=== PATIENT | male | born 1970 | race Caucasian/White ===

== ENCOUNTER 2017-01-02 22:52 | Emergency (ER) | payer BC ==
[2017-01-02] MEDS ORDERED: Diphtheria,Pertussis(Acell),Tetanus Vaccine 0.5 ML SDV IM ONE (23:28)
[2017-01-02] MEDS ORDERED: Bacitracin Oint 1 GM U/D Packet TOP ONE (23:29)
--- NOTE | 2017-01-02 23:33 | EDM.PDOC ---
ED HPI GENERAL MEDICAL PROBLEM - General Chief Complaint: Skin Complaint Stated Complaint: FISH HOOK MIDDLE RIGHT FINGER Time Seen by Provider: 01/02/17 23:29 Source of Information: Reports: Patient History Limitations: Reports: No Limitations - History of Present Illness INITIAL COMMENTS - FREE TEXT/NARRATIVE: pt has a fishook in his rt middle finger. Onset: Today Duration: Hour(s): Location: Reports: Upper Extremity, Right Associated Symptoms: Reports: No Other Symptoms right middle finger Pain Score (Numeric/FACES): 1 - Related Data Allergies Allergy/AdvReac Type Severity Reaction Status Date / Time Penicillins Allergy Cannot Verified 01/02/17 23:20 Remember Home Meds: Home Meds NK [No Known Home Meds] 01/02/17 [History] Past Medical History - Past Health History Medical/Surgical History: Denies Medical/Surgical History Social & Family History - Tobacco Use Smoking Status *Q: Never Smoker ED ROS GENERAL - Review of Systems Review Of Systems: See Below Constitutional: Reports: Fatigue HEENT: Reports: No Symptoms Respiratory: Reports: No Symptoms Cardiovascular: Reports: No Symptoms Endocrine: Reports: No Symptoms GI/Abdominal: Reports: No Symptoms : Reports: No Symptoms Musculoskeletal: Reports: Other ( fishook in the rt middle finger. ) ED EXAM, SKIN/RASH Exam: See Below Text/Narrative:: pt arrived with a fishook in the rt middle finger Exam Limited By: No Limitations General Appearance: Alert Extremities: Other (pt has a treble hook in the rt middle finger on the robert aspect. ) Course - Orders/Labs/Meds Orders: Active Orders 24 hr Category Date Time Status Vaccines to be Administered [RC] PER UNIT ROUTINE Care 01/02/17 23:29 Active Meds: Medications Discontinued Medications Generic Name Dose Route Start Last Admin Trade Name Freq PRN Reason Stop Dose Admin Bacitracin 1 dose 01/02/17 23:29 Bacitracin Oint 1 Gm TOP 01/02/17 23:30 ONETIME ONE Diphtheria/Tetanus/Acell Pertussis 0.5 ml 01/02/17 23:28 Adacel IM 01/02/17 23:29 .ONCE ONE Lidocaine HCl 5 ml 01/02/17 23:22 01/02/17 23:25 Xylocaine-Mpf 1% INJECT 01/02/17 23:23 5 ml ONETIME ONE Administration - Re-Assessments/Exams Free Text/Narrative Re-Assessment/Exam: 01/02/17 23:32 lidocaine was injected in the area. The hook was pushed through and the bong cut off. The hook was removed without difficulty. He was given a tdap as it had been 10 years, Departure - Departure Time of Disposition: 23:34 Disposition: Home, Self-Care 01 Condition: Fair Clinical Impression: Fish hook injury of finger of right hand - Discharge Information Forms: ED Department Discharge Care Plan Goals: soak finger if tender. . - My Orders Last 24 Hours: My Active Orders 01/02/17 23:29 Vaccines to be Administered [RC] PER UNIT ROUTINE - Assessment/Plan Last 24 Hours: My Active Orders 01/02/17 23:29 Vaccines to be Administered [RC] PER UNIT ROUTINE
== END 2017-01-02 23:44 | disposition home or self-care (01) ==
LOC: MERGE 22:52 → JP.ED 22:52
DX: S60.942A Unspecified superficial injury of right middle finger, initial encounter (principal); Z23 Encounter for immunization; Z88.0 Allergy status to penicillin; W45.8XXA Other foreign body or object entering through skin, initial encounter
CPT/HCPCS: 90471; 90715; 99283-25